=== PATIENT | male | born 1955 | race Caucasian/White ===

== ENCOUNTER 2020-03-28 13:23 | Emergency (ER) | payer OTHER ==
[~2020-03-28] VITALS: Ht 170.2 cm; Wt 78.0 kg
[2020-03-28 13:29] VITALS: BP 167/90
[2020-03-28] MEDS ORDERED: DIAZEPAM 5 MG TABLET ONE (13:55)
[2020-03-28] MEDS ORDERED: KETOROLAC 30 MG/1 ML ONE (13:55)
[2020-03-28] MEDS ORDERED: DIAZEPAM 5 MG TABLET PO ONE (14:00)
[2020-03-28] MEDS ORDERED: KETOROLAC 30 MG/1 ML IM ONE (14:00)
[2020-03-28] MEDS ORDERED: HYDROmorphone 1 MG/ML, 1ML INJ ONE (14:07)
[2020-03-28] MEDS ORDERED: HYDROmorphone 1 MG/ML, 1ML INJ IM ONE (14:30)
--- NOTE | 2020-03-28 14:48 | NUR ---
PT TO XRAY. 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 MD MADE AWARE. PER MD X RAY TO OBTAIN MANY IMAGES OF LUMBAR SPINE THEY CAN.
== END 2020-03-28 15:54 | disposition home or self-care (01) ==
LOC: ED 13:47
DX: S39.012A Strain of muscle, fascia and tendon of lower back, initial encounter (principal); M51.36 Other intervertebral disc degeneration, lumbar region; I10 Essential (primary) hypertension; F17.210 Nicotine dependence, cigarettes, uncomplicated; X58.XXXA Exposure to other specified factors, initial encounter; Y93.89 Activity, other specified; Y92.89 Other specified places as the place of occurrence of the external cause; Y99.8 Other external cause status
CPT/HCPCS: 72100; 96372; 99284; 99406; J1170; J1885; J7512